=== PATIENT | female | born 1995 | race Caucasian/White ===

== ENCOUNTER 2018-10-27 12:57 | Emergency (ER) | payer BC ==
[~2018-10-27] VITALS: Ht 162.6 cm; Wt 59.0 kg
[2018-10-27] MEDS ORDERED: BIRTH CONTROL (13:05)
[2018-10-27] MEDS ORDERED: PROZAC10 MG PO (13:05)
[2018-10-27] MEDS ORDERED: GARAMYCIN5 ML OPHTHALMIC (13:41)
[2018-10-27 13:48] VITALS: BP 134/76
== END 2018-10-27 13:49 | disposition home or self-care (01) ==
LOC: M.ERS 12:57
DX: S05.01XA Injury of conjunctiva and corneal abrasion without foreign body, right eye, initial encounter (principal); Z88.1 Allergy status to other antibiotic agents; X58.XXXA Exposure to other specified factors, initial encounter; Y93.9 Activity, unspecified; Y92.89 Other specified places as the place of occurrence of the external cause; Y99.8 Other external cause status